=== PATIENT | female | born 1960 | race Caucasian/White ===

== ENCOUNTER 2017-02-08 15:16 | Emergency (ER) | payer MEDICAID ==
--- NOTE | 2017-02-08 16:51 | ED Physician Chart ---
ED Chief Complaint/HPI - Patient Information Date Seen:: 02/08/17 Time Seen:: 15:45 Chief Complaint:: nausea History of Present Illness:: Patient was in a gas station and complained of nausea. The worker there called an ambulance. Patient had in a small purse her medicines of trintellix, percocet, zanaflex and zofran. She said EMT on the way to our hospital went through the medication bottles with her. The EMT gave to our triage nurse the pharmacy list of her medications only. I contacted [facility] and the dispatcher there contacted the deaf and hard of hearing teacher who had brought the patient here and they said her medications are in her car. Allergies:: Allergies Allergy/AdvReac Type Severity Reaction Status Date / Time divalproex sodium Allergy Verified 02/08/17 16:17 [From [facility]] Vitals:: Vital Signs - 8 hr 02/08/17 16:07 Temp 97.5 F HR 65 RR 16 BP 117/80 O2 Sat % 98 Historian:: Patient ED Review of Systems - Review of Systems General/Constitutional: No fever, No chills Skin: No skin lesions Head: No headache Eyes: No loss of vision ENT: No earache Neck: No neck pain Cardio Vascular: No chest pain Pulmonary: No SOB GI: Nausea G/U: No dysuria Musculoskeletal: No bone or joint pain Endocrine: No polyuria, No polydipsia Psychiatric: Prior psych history Hematopoietic: No bruising Allergic/Immuno: No urticaria Neurological: No syncope ED Past Medical History - Past Medical History Past Medical History: Other (fibromyalgia; bipolar type II; spondylosis of cervical and lumbar spines; hypothyroidism; hyperlipidemia) Family History: Diabetes Melitus Social History: Non Smoker, Alcohol, Other (occasional alcohol) Surgical History: Psychiatricy History: Bipolar Medication: Reviewed Family Medical History - Family Member Father Hx Family Diabetes: Yes ED Physical Exam - Physical Examination General/Constitutional: Well-developed, well-nourished, Alert, No distress Head: Atraumatic Eyes: Lids, conjuctiva normal, PERRL Skin: Nl inspection, No rash, No skin lesions, No ecchymosis, Well hydrated ENMT: External ears, nose nl, Lips, teeth, gums nl, Oropharynx nl, Tonsils nl Neck: No nuchal rigidity Respiratory: Nl effort/Exclusion, Clear to Auscultation, No Wheeze/Rhonchi/Rales Cardio Vascular: RRR, No murmur, gallop, rubs, NL S1 S2 GI: No tenderness/rebounding/guarding, No organomegaly, No hernia, Nondistended : No CVA tenderness Extremities: Normal digits & nails Neuro/Psych: No focal deficits Misc: No paraspinal tenderness ED Assessment - Assessment General Assessment: Patient is no longer nauseated at 1710 and wishes to take a taxi to the gas station where her car and hopefully her medications are also. ED Septic Shock - . Is Septic Shock (SBP<90, OR Lactate>4 mmol\L) present?: No - <6hrs of presentation: Vital Signs: Vital Signs - 8 hr 02/08/17 16:07 Temp 97.5 F HR 65 RR 16 BP 117/80 O2 Sat % 98 ED Reassessment (Disposition) - Reassessment Reassessment Condition:: Improved - Diagnosis Diagnosis:: Nausea - Patient Disposition Condition at Disposition:: Stable, Improved
== END 2017-02-08 17:30 | disposition home or self-care (01) ==
LOC: ER 15:16
DX: R11.0 Nausea (principal); E78.5 Hyperlipidemia, unspecified; E03.9 Hypothyroidism, unspecified
CPT/HCPCS: Z7502